=== PATIENT | female | born 1990 | race Two or more races ===

== ENCOUNTER 2019-10-13 19:49 | Emergency (ER) | payer MEDICAID ==
[~2019-10-13] VITALS: Ht 170.2 cm; Wt 53.0 kg
[2019-10-13 20:34] VITALS: BP 132/83
[2019-10-13] MEDS ORDERED: ACETAMINOPHEN 325MG TABLET PO ONE (21:15)
== END 2019-10-14 00:26 | disposition home or self-care (01) ==
LOC: ER 19:49
DX: S20.212A Contusion of left front wall of thorax, initial encounter (principal); V49.49XA Driver injured in collision with other motor vehicles in traffic accident, initial encounter; Y93.89 Activity, other specified; Y92.89 Other specified places as the place of occurrence of the external cause; Y99.8 Other external cause status; M25.552 Pain in left hip; J45.909 Unspecified asthma, uncomplicated
CPT/HCPCS: 71101; 73502; 99284